=== PATIENT | male | born 1965 | race Caucasian/White ===

== ENCOUNTER 2022-04-28 16:34 | Emergency (ER) | payer OTHER ==
--- OUTSIDE RECORDS SUMMARY | 2022-04-28 16:40 | XMS REPORT | Continuity of Care Document ---
:1965 Author Organization [facility] t Address [address] [place] [address] Care Team Providers Name Role Phone Asked, No Pcp Primary Care Physician Unavailable Waldo Galindo Attending Clinician Unavailable Eh KENNEYD, [place] Brandon Attending Clinician [phone], [facility] Attending Clinician Unavailable CHARANJIT GALINDO Attending Clinician Unavailable Payers Payer Name Policy Type Policy Number Effective Date Expiration Date S jefferson [employer] 6 [id number] Common Spiri t 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 00 l [id number] Acute Problem Common stress Spirit reaction - [facility] [id number] Panic Problem Common disorder [facility] [episodic - CHI paroxysmal St anxiety] [facility] [id number] Body mass Problem Com mon index [facility] [BMI] - [facility] 33.0-33.9[facility] [id number] Other Problem Common obesity Spirit due to - [facility]I excess [facility] Seasonal Allergic Problem Commo n allergic rhinitis, Spiri t rhinitis seasonal - [facility] Mixed Depression Problem Commo n anxiety with Spirit and anxiety - CHI depressive [facility] Erectile Erectile Problem Commo n dysfunctio dysfunctio Sp cristiane n n - [facility] Gastroesop Gastroesop Problem C ommon hageal hageal Spirit reflux reflux - CHI disease disease [facility] Herpes Herpes Problem Common simplex simplex [facility] Osteoarthr Osteoarthr Problem C ommon itis of itis of Spirit multiple multiple - [facility] joints joints [facility] Chronic Chronic Problem Common pain due pain due Spirit to injury to injury - [facility] I [facility] Decreased Decreased Problem Com mon testostero testostero Sp cristiane ne level ne level - [facility] Hyperlipid Hyperlipid Problem C ommon emia emia [facility] Insomnia Insomnia Problem Commo n Spirit [facility] Tobacco Tobacco Problem Common use use Spirit disorder - [facility] [id number] Allergic Problem Commo n rhinitis, Spirit unspecifie - CHI d [facility] y, Medical unspecifie Center d trigger Allergies, Adverse Reactions, Alerts Allergy Allergy Status Severity Reaction(s) Onset Inactive Treating Comm ents Source Name Type Date Date Clinician NO KNOWN Drug Active Univers ALLERGIE Class [facility] Social History Social Habit Start Date Stop Date Quantity Comments Source History of Current Smoker Common Spi rit - Tobacco Use [facility] History SDOH [facility] Drinks History SDOH [facility] Alcohol Binge [facility] History SDOH [facility] Alcohol Frequency Hospita l Alcohol intake 2018-05-27 2018-05-27 Current drinker [facility] 00:00:00 00:00:00 of alcohol Hospital (finding) Alcohol Comment 2018-04-28 2018-04-28 weekend [facility] 00:00:00 00:00:00 Hospital Tobacco use and 2018-04-28 2018-04-28 Smokeless tobacco Me thodist exposure 00:00:00 00:00:00 non-user Hospital Sex Assigned At [birth year] [facility] 00:00:00 00:00:00 Hospital Smoking Status Start Date Stop Date Source Current Smoker 2022-03-24 00:00:00 Common Spiri t - [facility] Light tobacco smoker 2018-04-28 00:00:[address] [facility] Medications Ordered Filled Start Stop Current Ordering Indication Dosage Frequency Signature Comments Components Source Medication Medication Date Date Medication? Clinician (SIG) Name Name methylPREDN methylPREDN 2022- No QD methylPRED ISolone 4 ISolone 4 03-03 NISolone 4 MG MG 00:00: 00:00 MG 00 :00 methylPREDN methylPREDN 2022- No QD methylPRED ISolone 4 ISolone 4 03-03 NISolone 4 MG MG 00:00: 00:00 MG 00 :00 Bactrim DS Bactrim DS 2021-0 2021- No 1{table BID Bactrim DS 800-160 MG 800-160 MG 07-31 t} 800-160 MG 00:00: 00:00 00 :00 Bactrim DS Bactrim DS 2-0 2022- No 1{table BID Bactrim DS 800-160 MG 800-160 MG 07-31 t} 800-160 MG 00:00: 00:00 00 :00 Kenalog Kenalog 2021-0 No 40mg Common (Triamcinol (Triamcinol 6-07 S pirit one) one) 00:00: - [facility] Kenalog Kenalog 2021-0 No 40mg Common (Triamcinol (Triamcinol 6-07 S pirit one) one) 00:00: - [facility] Kenalog Kenalog 2021-0 No 40mg Common (Triamcinol (Triamcinol 6-07 S pirit one) one) 00:00: - [facility] Kenalog Kenalog 2021-0 No 40mg Common (Triamcinol (Triamcinol 6-07 S pirit one) one) 00:00: - [facility] Jose Bentleyalog 2021-0 No 40mg Common (Triamcinol (Triamcinol 6-07 S pirit one) one) 00:00: - [facility] Jose Bentleyalog 2021-0 No 40mg Common (Triamcinol (Triamcinol 6-07 S pirit one) one) 00:00: - [facility] Jose Bentleyalog 2021-0 No 40mg Common (Triamcinol (Triamcinol 6-07 S pirit one) one) 00:00: - [facility] Jose Garcia 2021-0 No 40mg Common (Triamcinol (Triamcinol 6-07 S pirit one) one) 00:00: - [facility] Jose Garcia 2021-0 No 40mg Common (Triamcinol (Triamcinol 6-07 S pirit one) one) 00:00: - [facility] Azithromyci Azithromyci 2021-0 2- No QD Azithromyc n 250 MG n 250 MG -05 05-19 in 250 MG 00:00: 00:00 00 :00 Azithromyci Azithromyci 2021-0 2- No QD Azithromyc n 250 MG n 250 MG -14 -19 in 250 MG 00:00: 00:00 00 :00 clonazePAM clonazePAM 2021-0 No QD clonazePAM 0.5 MG 0.5 MG 1-06 0.5 MG 00:00: 00 clonazePAM clonazePAM 2021-0 No QD clonazePAM 0.5 MG 0.5 MG 1-06 0.5 MG 00:00: 00 clonazePAM clonazePAM 2021-0 No QD clonazePAM 0.5 MG 0.5 MG 1-06 0.5 MG 00:00: 00 buPROPion buPROPion 2020-0 No 1{table QD buPROPion HCl ER (SR) HCl ER (SR) 03-15 t_in_th HCl ER 150 MG 150 MG 00:00: e_morni (SR) 150 00 ng} MG buPROPion buPROPion No 1{table QD buPROPion HCl ER (SR) HCl ER (SR) 1-22 t_in_th HCl ER 150 MG 150 MG 00:00: e_morni (SR) 150 00 ng} MG buPROPion buPROPion No 1{table QD buPROPion HCl ER (SR) HCl ER (SR) 1-22 t_in_th HCl ER 150 MG 150 MG 00:00: e_morni (SR) 150 00 ng} MG buPROPion buPROPion No 1{table QD buPROPion HCl ER (SR) HCl ER (SR) 1-22 t_in_th HCl ER 150 MG 150 MG 00:00: e_morni (SR) 150 00 ng} MG buPROPion buPROPion No 1{table QD buPROPion HCl ER (SR) HCl ER (SR) 1- t_in_th HCl ER 150 MG 150 MG 00:00: e_morni (SR) 150 00 ng} MG buPROPion buPROPion No 1{table QD buPROPion HCl ER (SR) HCl ER (SR) 1- t_in_th HCl ER 150 MG 150 MG 00:00: e_morni (SR) 150 00 ng} MG buPROPion buPROPion No 1{table QD buPROPion HCl ER (SR) HCl ER (SR) 1- t_in_th HCl ER 150 MG 150 MG 00:00: e_morni (SR) 150 00 ng} MG buPROPion buPROPion No 1{table QD buPROPion HCl ER (SR) HCl ER (SR) 1-22 t_in_th HCl ER 150 MG 150 MG 00:00: e_morni (SR) 150 00 ng} MG buPROPion buPROPion No 1{table QD buPROPion HCl ER (SR) HCl ER (SR) 1-22 t_in_th HCl ER 150 MG 150 MG 00:00: e_morni (SR) 150 00 ng} MG buPROPion buPROPion 0 No 1{table QD buPROPion HCl ER (SR) HCl ER (SR) 1-22 t_in_th HCl ER 150 MG 150 MG 00:00: e_morni (SR) 150 00 ng} MG buPROPion buPROPion No 1{table QD buPROPion HCl ER (SR) HCl ER (SR) 1-22 t_in_th HCl ER 150 MG 150 MG 00:00: e_morni (SR) 150 00 ng} MG buPROPion buPROPion No 1{table QD buPROPion HCl ER (SR) HCl ER (SR) 1-22 t_in_th HCl ER 150 MG 150 MG 00:00: e_morni (SR) 150 00 ng} MG buPROPion buPROPion No 1{table QD buPROPion HCl ER (SR) HCl ER (SR) 1- t_in_th HCl ER 150 MG 150 MG 00:00: e_morni (SR) 150 00 ng} MG buPROPion buPROPion No 1{table QD buPROPion HCl ER (SR) HCl ER (SR) 1- t_in_th HCl ER 150 MG 150 MG 00:00: e_morni (SR) 150 00 ng} MG buPROPion buPROPion No 1{table QD buPROPion HCl ER (SR) HCl ER (SR) 1- t_in_th HCl ER 150 MG 150 MG 00:00: e_morni (SR) 150 00 ng} MG TinderBox 2019-02 No 40mg Common (Triamcinol (Triamcinol 1-23 S pirit one) one) 00:00: - [facility] GroSocialalog Kenalog 2019-02 No 40mg Common (Triamcinol (Triamcinol 1-23 S pirit one) one) 00:00: - [facility] Kenalog Kenalog 2019-02 No 40mg Common (Triamcinol (Triamcinol 1-23 S pirit one) one) 00:00: - [facility] Kenalog Kenalog 2019-02 No 40mg Common (Triamcinol (Triamcinol 1-23 S pirit one) one) 00:00: - [facility] Kenalog Kenalog 2019-02 No 40mg Common (Triamcinol (Triamcinol 1-23 S pirit one) one) 00:00: - [facility] Kenalog Kenalog 2019- No 40mg Common (Triamcinol (Triamcinol 1-23 S pirit one) one) 00:00: - [facility] Kenalog Kenalog 2019- No 40mg Common (Triamcinol (Triamcinol 1-23 S pirit one) one) 00:00: - [facility] Kenalog Kenalog 2019- No 40mg Common (Triamcinol (Triamcinol 1-23 S pirit one) one) 00:00: - [facility] Kenalog Kenalog 2019- No 40mg Common (Triamcinol (Triamcinol 1-23 S pirit one) one) 00:00: - [facility] Kenalog Kenalog 2019- No 40mg Common (Triamcinol (Triamcinol 1-23 S pirit one) one) 00:00: - [facility] Kenalog Kenalog 2019- No 40mg Common (Triamcinol (Triamcinol 1-23 S pirit one) one) 00:00: - [facility] Kenalog Kenalog 2019- No 40mg Common (Triamcinol (Triamcinol 1-23 S pirit one) one) 00:00: - [facility] Kenalog Kenalog 2019- No 40mg Common (Triamcinol (Triamcinol 1-23 S pirit one) one) 00:00: - [facility] Livalo Livalo 2019-0 Yes Waldo 1 tablet Com mon 8-20 Galindo Spirit 00:00: - [facility] Kenalog Kenalog 2018- No 40mg Common (Triamcinol (Triamcinol 1-19 S pirit one) one) 00:00: - [facility] Kenalog Kenalog 2018- No 40mg Common (Triamcinol (Triamcinol 1-19 S pirit one) one) 00:00: - [facility] Kenalog Kenalog 2018- No 40mg Common (Triamcinol (Triamcinol 1-19 S pirit one) one) 00:00: - [facility] Jose Kenalog 2019-1 No 40mg Common (Triamcinol (Triamcinol 1-19 S pirit one) one) 00:00: - [facility] Jose Kenalog 2019-1 No 40mg Common (Triamcinol (Triamcinol 1-19 S pirit one) one) 00:00: - [facility] Jose Kenalog 2019-1 No 40mg Common (Triamcinol (Triamcinol 1-19 S pirit one) one) 00:00: - [facility] Kenmatthew Kenmatthew 2019-1 No 40mg Common (Triamcinol (Triamcinol 1-19 S pirit one) one) 00:00: - [facility] Jose Kenmatthew 2019-1 No 40mg Common (Triamcinol (Triamcinol 1-19 S pirit one) one) 00:00: - [facility] Kenmatthew Kenmatthew 2019-1 No 40mg Common (Triamcinol (Triamcinol 1-19 S pirit one) one) 00:00: - [facility] Kenmatthew Kenmatthew 2019-1 No 40mg Common (Triamcinol (Triamcinol 1-19 S pirit one) one) 00:00: - [facility] Jose Kenmatthew 2019-1 No 40mg Common (Triamcinol (Triamcinol 1-19 S pirit one) one) 00:00: - [facility] Kenmatthew Kenalog 2019-1 No 40mg Common (Triamcinol (Triamcinol 1-19 S pirit one) one) 00:00: - [facility] Kenmatthew Kenmatthew 2019-1 No 40mg Common (Triamcinol (Triamcinol 1-19 S pirit one) one) 00:00: - [facility] Kenmatthew Kenalog 2019-0 No 40mg Common (Triamcinol (Triamcinol 6-25 S pirit one) one) 00:00: - [facility] Kenalog Kenalog 2019-0 No 40mg Common (Triamcinol (Triamcinol 6-25 S pirit one) one) 00:00: - [facility] Kenalog Kenalog 2019-0 No 40mg Common (Triamcinol (Triamcinol 6-25 S pirit one) one) 00:00: - [facility] Kenalog Kenalog 2019-0 No 40mg Common (Triamcinol (Triamcinol 6-25 S pirit one) one) 00:00: - [facility] Kenalog Kenalog 2019-0 No 40mg Common (Triamcinol (Triamcinol 6-25 S pirit one) one) 00:00: - [facility] Kenmatthew Kenalog 2019-0 No 40mg Common (Triamcinol (Triamcinol 6-25 S pirit one) one) 00:00: - [facility] Kenmatthew Kenalog 2019-0 No 40mg Common (Triamcinol (Triamcinol 6-25 S pirit one) one) 00:00: - [facility] Kenmatthew Kenalog 2019-0 No 40mg Common (Triamcinol (Triamcinol 6-25 S pirit one) one) 00:00: - [facility] Kenmatthew Kenalog 2019-0 No 40mg Common (Triamcinol (Triamcinol 6-25 S pirit one) one) 00:00: - [facility] Kenalog Kenalog 2019-0 No 40mg Common (Triamcinol (Triamcinol 6-25 S pirit one) one) 00:00: - [facility] Kenalog Kenalog 2019-0 No 40mg Common (Triamcinol (Triamcinol 6-25 S pirit one) one) 00:00: - [facility] Kenalog Kenalog 2019-0 No 40mg Common (Triamcinol (Triamcinol 6-25 S pirit one) one) 00:00: - [facility] Kenalog Kenalog 2019-0 No 40mg Common (Triamcinol (Triamcinol 6-25 S pirit one) one) 00:00: - [facility] *Ketorolac *Ketorolac 2019-0 No 30mg C ommon 30mg/mL 30mg/mL 07-27 Spirit 00:00: - [facility] *Ketorolac *Ketorolac 2019-0 No 30mg C ommon 30mg/mL 30mg/mL 07-27 Spirit 00:00: - [facility] *Ketorolac *Ketorolac 2019-0 No 30mg C ommon 30mg/mL 30mg/mL 07-27 Spirit 00:00: - [facility] *Ketorolac *Ketorolac 2019-0 No 30mg C ommon 30mg/mL 30mg/mL 07-27 Spirit 00:00: - [facility] *Ketorolac *Ketorolac 2018-0 No 30mg C ommon 30mg/mL 30mg/mL 07-27 Spirit 00:00: - [facility] *Ketorolac *Ketorolac 2019-0 No 30mg C ommon 30mg/mL 30mg/mL 07-27 Spirit 00:00: - [facility] *Ketorolac *Ketorolac 2018-0 No 30mg C ommon 30mg/mL 30mg/mL 07-27 Spirit 00:00: - [facility] *Ketorolac *Ketorolac 2019-0 No 30mg C ommon 30mg/mL 30mg/mL 07-27 Spirit 00:00: - [facility] *Ketorolac *Ketorolac 2019-0 No 30mg C ommon 30mg/mL 30mg/mL 07-27 Spirit 00:00: - [facility] *Ketorolac *Ketorolac 2019-0 No 30mg C ommon 30mg/mL 30mg/mL 07-27 Spirit 00:00: - [facility] *Ketorolac *Ketorolac 2019-0 No 30mg C ommon 30mg/mL 30mg/mL 07-27 Spirit 00:00: - [facility] *Ketorolac *Ketorolac 2019-0 No 30mg C ommon 30mg/mL 30mg/mL 07-27 Spirit 00:00: - [facility] *Ketorolac *Ketorolac 2018-0 No 30mg C ommon 30mg/mL 30mg/mL 07-27 Spirit 00:00: - [facility] atorvastati 2018-0 Yes Method i n (LIPITOR) 4-16 st 10 MG 00:00: Hospita tablet 00 l atorvastati 2019-0 Yes Method i n (LIPITOR) 4-16 st 10 MG 00:00: Hospita tablet 00 l benzonatate 2018-0 Yes TK 1 TO 2 M ethodi (TESSALON) 4-[address] 100 MG 00:00: PRN Hospita capsule 00 l doxycycline 2019-0 Yes TK 1 C PO M ethodi (VIBRAMYCIN 4-[address] ) 100 MG 00:00: DAYS Hospita capsule 00 l amoxicillin 2018-0 Yes TK 1 T PO M ethodi -pot 4-[address] clavulanate 00:00: Hospit a (AUGMENTIN) 00 l 875-125 mg per tablet benzonatate 2018-0 Yes TK 1 TO 2 M ethodi (TESSALON) 4-[address] 100 MG 00:00: PRN Hospita capsule 00 l doxycycline 2019-0 Yes TK 1 C PO M ethodi (VIBRAMYCIN 4-[address] ) 100 MG 00:00: DAYS Hospita capsule 00 l amoxicillin 2018-0 Yes TK 1 T PO M ethodi -pot 4-[address] clavulanate 00:00: Hospit a (AUGMENTIN) 00 l 875-125 mg per tablet UNABLE TO 2019-0 Yes 2{tbl} Take 2 Meth [facility] FIND 4-[address] 08:51: mouth. Hospita 36 l RED YEAST 2019-0 Yes Take by Metho di RICE ORAL 4-[address] 08:51: Hospita 36 l UNABLE TO 2019-0 Yes 2{tbl} Take 2 Meth [facility] FIND 4-[address] 08:51: mouth. Hospita 36 l RED YEAST 2019-0 Yes Take by Metho di RICE ORAL 4-[address] 08:51: Hospita 36 l HYDROcodone 2019-0 Yes TK 1 T PO M ethodi -acetaminop 4-[address] hen (NORCO) 00:00: P Hospit a 7.5-325 mg 00 l per tablet HYDROcodone Yes TK 1 T PO M ethodi -acetaminop 4-[address] Q [address] hen (NORCO) 00:00: P Hospit a 7.5-325 mg 00 l per tablet escitalopra 2017-02 Yes TK 1 T PO M ethodi m (LEXAPRO) 2-[address] 20 MG 00:00: Hospita tablet 00 l escitalopra 2017-02 Yes TK 1 T PO M ethodi m (LEXAPRO) 2-[address] 20 MG 00:00: Hospita tablet 00 l Lexapro Lexapro Yes Waldo 1 tablet Com mon Galindo [facility] ProAir HFA ProAir HFA Yes Waldo 2 puffs as Common Galindo needed [facility] Tamsulosin Tamsulosin Yes Waldo 1 capsule Common HCl HCl Galindo [facility] Simvastatin Simvastatin Yes Waldo TAKE 1 Common Galindo TABLET BY [facility] MOUTH - [facility]I EVERY DAY [facility] IN [facility] Waldo 1 tablet Commo n Allergy Allergy Galindo [facility] BuPROPion BuPROPion Yes Waldo TAKE 1 C ommon HCl ER HCl ER Galindo TABLET BY Spiri t (Smoking (Smoking MOUTH - CHI Det) Det) EVERY DAY St IN [facility] Ajay Moss Yes Waldo 1 tablet Commo n Galindo as needed [facility] Escitalopra Escitalopra Yes Waldo 1/2 tablet Common m Oxalate m Oxalate Galindo Spir [facility] BuPROPion BuPROPion Yes Waldo 1 tablet Common HCl ER HCl ER Galindo in the [facility] (Smoking (Smoking morning - CH I Det) Det) [facility] Escitalopra Escitalopra Yes Waldo TAKE 1 Common m Oxalate m Oxalate Galindo TABLET BY [facility] MOUTH - [facility]I EVERY DAY [facility] Simvastatin Simvastatin No Simvastati 10 MG 10 MG n 10 MG ProAir HFA ProAir HFA No 2{puffs QID ProAir HFA 108 (90 108 (90 _as_nee 108 (90 Base) Base) ded} Base) MCG/ACT MCG/ACT MCG/ACT Escitalopra Escitalopra No Escitalopr m Oxalate m Oxalate am Oxalate 20 MG 20 MG 20 MG Cialis 5 MG Cialis 5 MG No 1{table QD Cialis 5 t_as_ne MG eded} Lexapro 20 Lexapro 20 No 1{table QD Lexapro 20 MG MG t} MG buPROPion buPROPion No buPROPion HCl ER HCl ER HCl ER (Smoking (Smoking (Smoking Det) 150 MG Det) 150 MG Det) 150 MG Ventolin Ventolin No Ventolin HFA 108 (90 HFA 108 (90 HFA 108 Base) Base) (90 Base) MCG/ACT MCG/ACT MCG/ACT Escitalopra Escitalopra No QD Escitalopr m Oxalate m Oxalate am Oxalate 20 20 20 Simvastatin Simvastatin No Simvastati 10 MG 10 MG n 10 MG Tamsulosin Tamsulosin No 1{capsu QD Tamsulosin HCl 0.4 HCl 0.4 le} HCl 0.4 ZyrTEC ZyrTEC No 1{table QD ZyrTEC Allergy 10 Allergy 10 t} Allergy 10 MG MG MG Tamsulosin Tamsulosin No 1{capsu QD Tamsulosin HCl 0.4 HCl 0.4 le} HCl 0.4 Simvastatin Simvastatin No QD Simvastati 10 MG 10 MG n 10 MG buPROPion buPROPion No 1{table QD buPROPion HCl ER HCl ER t_in_th HCl ER (Smoking (Smoking e_morni (Smoking Det) 150 MG Det) 150 MG ng} Det) 150 MG Simvastatin Simvastatin No Simvastati 10 MG 10 MG n 10 MG Lexapro 20 Lexapro 20 No 1{table QD Lexapro 20 MG MG t} MG ProAir HFA ProAir HFA No 2{puffs ProAir HFA 108 (90 108 (90 _as_nee 108 (90 Base) Base) ded} Base) MCG/ACT MCG/ACT MCG/ACT Cialis 5 MG Cialis 5 MG No 1{table QD Cialis 5 t_as_ne MG eded} buPROPion buPROPion No buPROPion HCl ER HCl ER HCl ER (Smoking (Smoking (Smoking Det) 150 MG Det) 150 MG Det) 150 MG Escitalopra Escitalopra No Escitalopr m Oxalate m Oxalate am Oxalate 20 MG 20 MG 20 MG ProAir HFA ProAir HFA No 2{puffs QID ProAir HFA 108 (90 108 (90 _as_nee 108 (90 Base) Base) ded} Base) MCG/ACT MCG/ACT MCG/ACT ZyrTEC ZyrTEC No 1{table QD ZyrTEC Allergy 10 Allergy 10 t} Allergy 10 MG MG MG Ventolin Ventolin No Ventolin HFA 108 (90 HFA 108 (90 HFA 108 Base) Base) (90 Base) MCG/ACT MCG/ACT MCG/ACT Escitalopra Escitalopra No QD Escitalopr m Oxalate m Oxalate am Oxalate 20 20 20 ProAir HFA ProAir HFA No 2{puffs ProAir HFA 108 (90 108 (90 _as_nee 108 (90 Base) Base) ded} Base) MCG/ACT MCG/ACT MCG/ACT Escitalopra Escitalopra No Escitalopr m Oxalate m Oxalate am Oxalate 20 MG 20 MG 20 MG buPROPion buPROPion No buPROPion HCl ER HCl ER HCl ER (Smoking (Smoking (Smoking Det) 150 MG Det) 150 MG Det) 150 MG Ventolin Ventolin No Ventolin HFA 108 (90 HFA 108 (90 HFA 108 Base) Base) (90 Base) MCG/ACT MCG/ACT MCG/ACT Simvastatin Simvastatin No QD Simvastati 10 MG 10 MG n 10 MG Simvastatin Simvastatin No Simvastati 10 MG 10 MG n 10 MG ProAir HFA ProAir HFA No 2{puffs QID ProAir HFA 108 (90 108 (90 _as_nee 108 (90 Base) Base) ded} Base) MCG/ACT MCG/ACT MCG/ACT Tamsulosin Tamsulosin No 1{capsu QD Tamsulosin HCl 0.4 HCl 0.4 le} HCl 0.4 Lexapro 20 Lexapro 20 No 1{table QD Lexapro 20 MG MG t} MG Cialis 5 MG Cialis 5 MG No 1{table QD Cialis 5 t_as_ne MG eded} Escitalopra Escitalopra No QD Escitalopr m Oxalate m Oxalate am Oxalate 20 20 20 ZyrTEC ZyrTEC No 1{table QD ZyrTEC Allergy 10 Allergy 10 t} Allergy 10 MG MG MG ProAir HFA ProAir HFA No 2{puffs ProAir HFA 108 (90 108 (90 _as_nee 108 (90 Base) Base) ded} Base) MCG/ACT MCG/ACT MCG/ACT Escitalopra Escitalopra No Escitalopr m Oxalate m Oxalate am Oxalate 20 MG 20 MG 20 MG buPROPion buPROPion No buPROPion HCl ER HCl ER HCl ER (Smoking (Smoking (Smoking Det) 150 MG Det) 150 MG Det) 150 MG Ventolin Ventolin No Ventolin HFA 108 (90 HFA 108 (90 HFA 108 Base) Base) (90 Base) MCG/ACT MCG/ACT MCG/ACT Simvastatin Simvastatin No QD Simvastati 10 MG 10 MG n 10 MG Simvastatin Simvastatin No Simvastati 10 MG 10 MG n 10 MG ProAir HFA ProAir HFA No 2{puffs QID ProAir HFA 108 (90 108 (90 _as_nee 108 (90 Base) Base) ded} Base) MCG/ACT MCG/ACT MCG/ACT Tamsulosin Tamsulosin No 1{capsu QD Tamsulosin HCl 0.4 HCl 0.4 le} HCl 0.4 Lexapro 20 Lexapro 20 No 1{table QD Lexapro 20 MG MG t} MG Cialis 5 MG Cialis 5 MG No 1{table QD Cialis 5 t_as_ne MG eded} Escitalopra Escitalopra No QD Escitalopr m Oxalate m Oxalate am Oxalate 20 20 20 ZyrTEC ZyrTEC No 1{table QD ZyrTEC Allergy 10 Allergy 10 t} Allergy 10 MG MG MG clonazePAM clonazePAM No QD clonazePAM 0.5 MG 0.5 MG 0.5 MG Tamsulosin Tamsulosin No 1{capsu QD Tamsulosin HCl 0.4 HCl 0.4 le} HCl 0.4 buPROPion buPROPion No buPROPion HCl ER HCl ER HCl ER (Smoking (Smoking (Smoking Det) 150 MG Det) 150 MG Det) 150 MG Simvastatin Simvastatin No Simvastati 10 MG 10 MG n 10 MG Escitalopra Escitalopra No Escitalopr m Oxalate m Oxalate am Oxalate 20 MG 20 MG 20 MG Ventolin Ventolin No Ventolin HFA 108 (90 HFA 108 (90 HFA 108 Base) Base) (90 Base) MCG/ACT MCG/ACT MCG/ACT Simvastatin Simvastatin No QD Simvastati 10 MG 10 MG n 10 MG Cialis 5 MG Cialis 5 MG No 1{table QD Cialis 5 t_as_ne MG eded} Escitalopra Escitalopra No QD Escitalopr m Oxalate m Oxalate am Oxalate 20 20 20 Lexapro 20 Lexapro 20 No 1{table QD Lexapro 20 MG MG t} MG ProAir HFA ProAir HFA No 2{puffs ProAir HFA 108 (90 108 (90 _as_nee 108 (90 Base) Base) ded} Base) MCG/ACT MCG/ACT MCG/ACT buPROPion buPROPion No 1{table QD buPROPion HCl ER HCl ER t_in_th HCl ER (Smoking (Smoking e_morni (Smoking Det) 150 MG Det) 150 MG ng} Det) 150 MG ProAir HFA ProAir HFA No 2{puffs QID ProAir HFA 108 (90 108 (90 _as_nee 108 (90 Base) Base) ded} Base) MCG/ACT MCG/ACT MCG/ACT ZyrTEC ZyrTEC No 1{table QD ZyrTEC Allergy 10 Allergy 10 t} Allergy 10 MG MG MG Escitalopra Escitalopra No QD Escitalopr m Oxalate m Oxalate am Oxalate 20 20 20 Simvastatin Simvastatin No Simvastati 10 MG 10 MG n 10 MG buPROPion buPROPion No 1{table QD buPROPion HCl ER HCl ER t_in_th HCl ER (Smoking (Smoking e_morni (Smoking Det) 150 MG Det) 150 MG ng} Det) 150 MG ZyrTEC ZyrTEC No 1{table QD ZyrTEC Allergy 10 Allergy 10 t} Allergy 10 MG MG MG Lexapro 20 Lexapro 20 No 1{table QD Lexapro 20 MG MG t} MG Escitalopra Escitalopra No Escitalopr m Oxalate m Oxalate am Oxalate 20 MG 20 MG 20 MG buPROPion buPROPion No buPROPion HCl ER HCl ER HCl ER (Smoking (Smoking (Smoking Det) 150 MG Det) 150 MG Det) 150 MG Cialis 5 MG Cialis 5 MG No 1{table QD Cialis 5 t_as_ne MG eded} Simvastatin Simvastatin No QD Simvastati 10 MG 10 MG n 10 MG Tamsulosin Tamsulosin No 1{capsu QD Tamsulosin HCl 0.4 HCl 0.4 le} HCl 0.4 ProAir HFA ProAir HFA No 2{puffs ProAir HFA 108 (90 108 (90 _as_nee 108 (90 Base) Base) ded} Base) MCG/ACT MCG/ACT MCG/ACT Ventolin Ventolin No Ventolin HFA 108 (90 HFA 108 (90 HFA 108 Base) Base) (90 Base) MCG/ACT MCG/ACT MCG/ACT ProAir HFA ProAir HFA No 2{puffs QID ProAir HFA 108 (90 108 (90 _as_nee 108 (90 Base) Base) ded} Base) MCG/ACT MCG/ACT MCG/ACT clonazePAM clonazePAM No QD clonazePAM 0.5 MG 0.5 MG 0.5 MG ProAir HFA ProAir HFA No 2{puffs QID ProAir HFA 108 (90 108 (90 _as_nee 108 (90 Base) Base) ded} Base) MCG/ACT MCG/ACT MCG/ACT buPROPion buPROPion No 1{table QD buPROPion HCl ER HCl ER t_in_th HCl ER (Smoking (Smoking e_morni (Smoking Det) 150 MG Det) 150 MG ng} Det) 150 MG Lexapro 20 Lexapro 20 No 1{table QD Lexapro 20 MG MG t} MG Escitalopra Escitalopra No Escitalopr m Oxalate m Oxalate am Oxalate 20 MG 20 MG 20 MG Cialis 5 MG Cialis 5 MG No 1{table QD Cialis 5 t_as_ne MG eded} clonazePAM clonazePAM No QD clonazePAM 0.5 MG 0.5 MG 0.5 MG Medrol 4 MG Medrol 4 MG No Medrol 4 MG ZyrTEC ZyrTEC No 1{table QD ZyrTEC Allergy 10 Allergy 10 t} Allergy 10 MG MG MG Escitalopra Escitalopra No QD Escitalopr m Oxalate m Oxalate am Oxalate 20 20 20 Ventolin Ventolin No Ventolin HFA 108 (90 HFA 108 (90 HFA 108 Base) Base) (90 Base) MCG/ACT MCG/ACT MCG/ACT Simvastatin Simvastatin No QD Simvastati 10 MG 10 MG n 10 MG Simvastatin Simvastatin No Simvastati 10 MG 10 MG n 10 MG ProAir HFA ProAir HFA No 2{puffs ProAir HFA 108 (90 108 (90 _as_nee 108 (90 Base) Base) ded} Base) MCG/ACT MCG/ACT MCG/ACT buPROPion buPROPion No buPROPion HCl ER HCl ER HCl ER (Smoking (Smoking (Smoking Det) 150 MG Det) 150 MG Det) 150 MG Tamsulosin Tamsulosin No 1{capsu QD Tamsulosin HCl 0.4 HCl 0.4 le} HCl 0.4 ProAir HFA ProAir HFA No 2{puffs QID ProAir HFA 108 (90 108 (90 _as_nee 108 (90 Base) Base) ded} Base) MCG/ACT MCG/ACT MCG/ACT buPROPion buPROPion No 1{table QD buPROPion HCl ER HCl ER t_in_th HCl ER (Smoking (Smoking e_morni (Smoking Det) 150 MG Det) 150 MG ng} Det) 150 MG Lexapro 20 Lexapro 20 No 1{table QD Lexapro 20 MG MG t} MG Escitalopra Escitalopra No Escitalopr m Oxalate m Oxalate am Oxalate 20 MG 20 MG 20 MG Cialis 5 MG Cialis 5 MG No 1{table QD Cialis 5 t_as_ne MG eded} clonazePAM clonazePAM No QD clonazePAM 0.5 MG 0.5 MG 0.5 MG Medrol 4 MG Medrol 4 MG No Medrol 4 MG ZyrTEC ZyrTEC No 1{table QD ZyrTEC Allergy 10 Allergy 10 t} Allergy 10 MG MG MG Escitalopra Escitalopra No QD Escitalopr m Oxalate m Oxalate am Oxalate 20 20 20 Ventolin Ventolin No Ventolin HFA 108 (90 HFA 108 (90 HFA 108 Base) Base) (90 Base) MCG/ACT MCG/ACT MCG/ACT Simvastatin Simvastatin No QD Simvastati 10 MG 10 MG n 10 MG Simvastatin Simvastatin No Simvastati 10 MG 10 MG n 10 MG ProAir HFA ProAir HFA No 2{puffs ProAir HFA 108 (90 108 (90 _as_nee 108 (90 Base) Base) ded} Base) MCG/ACT MCG/ACT MCG/ACT buPROPion buPROPion No buPROPion HCl ER HCl ER HCl ER (Smoking (Smoking (Smoking Det) 150 MG Det) 150 MG Det) 150 MG Tamsulosin Tamsulosin No 1{capsu QD Tamsulosin HCl 0.4 HCl 0.4 le} HCl 0.4 buPROPion buPROPion No 1{table QD buPROPion HCl ER HCl ER t_in_th HCl ER (Smoking (Smoking e_morni (Smoking Det) 150 MG Det) 150 MG ng} Det) 150 MG Tamsulosin Tamsulosin No 1{capsu QD Tamsulosin HCl 0.4 HCl 0.4 le} HCl 0.4 Simvastatin Simvastatin No Simvastati 10 MG 10 MG n 10 MG ProAir HFA ProAir HFA No 2{puffs QID ProAir HFA 108 (90 108 (90 _as_nee 108 (90 Base) Base) ded} Base) MCG/ACT MCG/ACT MCG/ACT clonazePAM clonazePAM No QD clonazePAM 0.5 MG 0.5 MG 0.5 MG Cialis 5 MG Cialis 5 MG No 1{table QD Cialis 5 t_as_ne MG eded} Medrol 4 MG Medrol 4 MG No Medrol 4 MG Escitalopra Escitalopra No QD Escitalopr m Oxalate m Oxalate am Oxalate 20 20 20 Lexapro 20 Lexapro 20 No 1{table QD Lexapro 20 MG MG t} MG Escitalopra Escitalopra No Escitalopr m Oxalate m Oxalate am Oxalate 20 MG 20 MG 20 MG buPROPion buPROPion No buPROPion HCl ER HCl ER HCl ER (Smoking (Smoking (Smoking Det) 150 MG Det) 150 MG Det) 150 MG ZyrTEC ZyrTEC No 1{table QD ZyrTEC Allergy 10 Allergy 10 t} Allergy 10 MG MG MG ProAir HFA ProAir HFA No 2{puffs ProAir HFA 108 (90 108 (90 _as_nee 108 (90 Base) Base) ded} Base) MCG/ACT MCG/ACT MCG/ACT Ventolin Ventolin No Ventolin HFA 108 (90 HFA 108 (90 HFA 108 Base) Base) (90 Base) MCG/ACT MCG/ACT MCG/ACT Simvastatin Simvastatin No QD Simvastati 10 MG 10 MG n 10 MG buPROPion buPROPion No 1{table QD buPROPion HCl ER HCl ER t_in_th HCl ER (Smoking (Smoking e_morni (Smoking Det) 150 MG Det) 150 MG ng} Det) 150 MG Tamsulosin Tamsulosin No 1{capsu QD Tamsulosin HCl 0.4 HCl 0.4 le} HCl 0.4 Simvastatin Simvastatin No Simvastati 10 MG 10 MG n 10 MG ProAir HFA ProAir HFA No 2{puffs QID ProAir HFA 108 (90 108 (90 _as_nee 108 (90 Base) Base) ded} Base) MCG/ACT MCG/ACT MCG/ACT clonazePAM clonazePAM No QD clonazePAM 0.5 MG 0.5 MG 0.5 MG Cialis 5 MG Cialis 5 MG No 1{table QD Cialis 5 t_as_ne MG eded} Medrol 4 MG Medrol 4 MG No Medrol 4 MG Escitalopra Escitalopra No QD Escitalopr m Oxalate m Oxalate am Oxalate 20 20 20 Lexapro 20 Lexapro 20 No 1{table QD Lexapro 20 MG MG t} MG Escitalopra Escitalopra No Escitalopr m Oxalate m Oxalate am Oxalate 20 MG 20 MG 20 MG buPROPion buPROPion No buPROPion HCl ER HCl ER HCl ER (Smoking (Smoking (Smoking Det) 150 MG Det) 150 MG Det) 150 MG ZyrTEC ZyrTEC No 1{table QD ZyrTEC Allergy 10 Allergy 10 t} Allergy 10 MG MG MG ProAir HFA ProAir HFA No 2{puffs ProAir HFA 108 (90 108 (90 _as_nee 108 (90 Base) Base) ded} Base) MCG/ACT MCG/ACT MCG/ACT Ventolin Ventolin No Ventolin HFA 108 (90 HFA 108 (90 HFA 108 Base) Base) (90 Base) MCG/ACT MCG/ACT MCG/ACT Simvastatin Simvastatin No QD Simvastati 10 MG 10 MG n 10 MG ZyrTEC ZyrTEC No 1{table QD ZyrTEC Allergy 10 Allergy 10 t} Allergy 10 MG MG MG Lexapro 20 Lexapro 20 No 1{table QD Lexapro 20 MG MG t} MG Escitalopra Escitalopra No QD Escitalopr m Oxalate m Oxalate am Oxalate 20 20 20 Cialis 5 MG Cialis 5 MG No 1{table QD Cialis 5 t_as_ne MG eded} ProAir HFA ProAir HFA No 2{puffs ProAir HFA 108 (90 108 (90 _as_nee 108 (90 Base) Base) ded} Base) MCG/ACT MCG/ACT MCG/ACT Ventolin Ventolin No Ventolin HFA 108 (90 HFA 108 (90 HFA 108 Base) Base) (90 Base) MCG/ACT MCG/ACT MCG/ACT buPROPion buPROPion No 1{table QD buPROPion HCl ER HCl ER t_in_th HCl ER (Smoking (Smoking e_morni (Smoking Det) 150 MG Det) 150 MG ng} Det) 150 MG Tamsulosin Tamsulosin No 1{capsu QD Tamsulosin HCl 0.4 HCl 0.4 le} HCl 0.4 ProAir HFA ProAir HFA No 2{puffs QID ProAir HFA 108 (90 108 (90 _as_nee 108 (90 Base) Base) ded} Base) MCG/ACT MCG/ACT MCG/ACT Medrol 4 MG Medrol 4 MG No Medrol 4 MG buPROPion buPROPion No buPROPion HCl ER HCl ER HCl ER (Smoking (Smoking (Smoking Det) 150 MG Det) 150 MG Det) 150 MG clonazePAM clonazePAM No QD clonazePAM 0.5 MG 0.5 MG 0.5 MG Escitalopra Escitalopra No Escitalopr m Oxalate m Oxalate am Oxalate 20 MG 20 MG 20 MG Simvastatin Simvastatin No QD Simvastati 10 MG 10 MG n 10 MG Simvastatin Simvastatin No Simvastati 10 MG 10 MG n 10 MG buPROPion buPROPion No buPROPion HCl ER HCl ER HCl ER (Smoking (Smoking (Smoking Det) 150 MG Det) 150 MG Det) 150 MG Tamsulosin Tamsulosin No 1{capsu QD Tamsulosin HCl 0.4 HCl 0.4 le} HCl 0.4 Lexapro 20 Lexapro 20 No 1{table QD Lexapro 20 MG MG t} MG Medrol 4 MG Medrol 4 MG No Medrol 4 MG Escitalopra Escitalopra No QD Escitalopr m Oxalate m Oxalate am Oxalate 20 20 20 Ventolin Ventolin No Ventolin HFA 108 (90 HFA 108 (90 HFA 108 Base) Base) (90 Base) MCG/ACT MCG/ACT MCG/ACT ProAir HFA ProAir HFA No 2{puffs QID ProAir HFA 108 (90 108 (90 _as_nee 108 (90 Base) Base) ded} Base) MCG/ACT MCG/ACT MCG/ACT Escitalopra Escitalopra No Escitalopr m Oxalate m Oxalate am Oxalate 20 MG 20 MG 20 MG ProAir HFA ProAir HFA No 2{puffs ProAir HFA 108 (90 108 (90 _as_nee 108 (90 Base) Base) ded} Base) MCG/ACT MCG/ACT MCG/ACT Simvastatin Simvastatin No Simvastati 10 MG 10 MG n 10 MG clonazePAM clonazePAM No QD clonazePAM 0.5 MG 0.5 MG 0.5 MG ZyrTEC ZyrTEC No 1{table QD ZyrTEC Allergy 10 Allergy 10 t} Allergy 10 MG MG MG Cialis 5 MG Cialis 5 MG No 1{table QD Cialis 5 t_as_ne MG eded} buPROPion buPROPion No buPROPion HCl ER HCl ER HCl ER (Smoking (Smoking (Smoking Det) 150 MG Det) 150 MG Det) 150 MG Tamsulosin Tamsulosin No 1{capsu QD Tamsulosin HCl 0.4 HCl 0.4 le} HCl 0.4 Lexapro 20 Lexapro 20 No 1{table QD Lexapro 20 MG MG t} MG Medrol 4 MG Medrol 4 MG No Medrol 4 MG Escitalopra Escitalopra No QD Escitalopr m Oxalate m Oxalate am Oxalate 20 20 20 Ventolin Ventolin No Ventolin HFA 108 (90 HFA 108 (90 HFA 108 Base) Base) (90 Base) MCG/ACT MCG/ACT MCG/ACT ProAir HFA ProAir HFA No 2{puffs QID ProAir HFA 108 (90 108 (90 _as_nee 108 (90 Base) Base) ded} Base) MCG/ACT MCG/ACT MCG/ACT Escitalopra Escitalopra No Escitalopr m Oxalate m Oxalate am Oxalate 20 MG 20 MG 20 MG ProAir HFA ProAir HFA No 2{puffs ProAir HFA 108 (90 108 (90 _as_nee 108 (90 Base) Base) ded} Base) MCG/ACT MCG/ACT MCG/ACT Simvastatin Simvastatin No Simvastati 10 MG 10 MG n 10 MG clonazePAM clonazePAM No QD clonazePAM 0.5 MG 0.5 MG 0.5 MG ZyrTEC ZyrTEC No 1{table QD ZyrTEC Allergy 10 Allergy 10 t} Allergy 10 MG MG MG Cialis 5 MG Cialis 5 MG No 1{table QD Cialis 5 t_as_ne MG eded} Escitalopra Escitalopra No Escitalopr m Oxalate m Oxalate am Oxalate 20 MG 20 MG 20 MG Tamsulosin Tamsulosin No 1{capsu QD Tamsulosin HCl 0.4 HCl 0.4 le} HCl 0.4 ZyrTEC ZyrTEC No 1{table QD ZyrTEC Allergy 10 Allergy 10 t} Allergy 10 MG MG MG Lexapro 20 Lexapro 20 No 1{table QD Lexapro 20 MG MG t} MG Escitalopra Escitalopra No QD Escitalopr m Oxalate m Oxalate am Oxalate 20 20 20 buPROPion buPROPion No 1{table QD buPROPion HCl ER HCl ER t_in_th HCl ER (Smoking (Smoking e_morni (Smoking Det) 150 MG Det) 150 MG ng} Det) 150 MG clonazePAM clonazePAM No QD clonazePAM 0.5 MG 0.5 MG 0.5 MG Medrol 4 MG Medrol 4 MG No Medrol 4 MG Cialis 5 MG Cialis 5 MG No 1{table QD Cialis 5 t_as_ne MG eded} buPROPion buPROPion No buPROPion HCl ER HCl ER HCl ER (Smoking (Smoking (Smoking Det) 150 MG Det) 150 MG Det) 150 MG Simvastatin Simvastatin No QD Simvastati 20 MG 20 MG n 20 MG ProAir HFA ProAir HFA No 2{puffs QID ProAir HFA 108 (90 108 (90 _as_nee 108 (90 Base) Base) ded} Base) MCG/ACT MCG/ACT MCG/ACT Ventolin Ventolin No Ventolin HFA 108 (90 HFA 108 (90 HFA 108 Base) Base) (90 Base) MCG/ACT MCG/ACT MCG/ACT ProAir HFA ProAir HFA No 2{puffs ProAir HFA 108 (90 108 (90 _as_nee 108 (90 Base) Base) ded} Base) MCG/ACT MCG/ACT MCG/ACT ZyrTEC ZyrTEC No 1{table QD ZyrTEC Allergy 10 Allergy 10 t} Allergy 10 MG MG MG Lexapro 20 Lexapro 20 No 1{table QD Lexapro 20 MG MG t} MG Escitalopra Escitalopra No QD Escitalopr m Oxalate m Oxalate am Oxalate 20 20 20 Cialis 5 MG Cialis 5 MG No 1{table QD Cialis 5 t_as_ne MG eded} ProAir HFA ProAir HFA No 2{puffs ProAir HFA 108 (90 108 (90 _as_nee 108 (90 Base) Base) ded} Base) MCG/ACT MCG/ACT MCG/ACT Ventolin Ventolin No Ventolin HFA 108 (90 HFA 108 (90 HFA 108 Base) Base) (90 Base) MCG/ACT MCG/ACT MCG/ACT buPROPion buPROPion No 1{table QD buPROPion HCl ER HCl ER t_in_th HCl ER (Smoking (Smoking e_morni (Smoking Det) 150 MG Det) 150 MG ng} Det) 150 MG Tamsulosin Tamsulosin No 1{capsu QD Tamsulosin HCl 0.4 HCl 0.4 le} HCl 0.4 ProAir HFA ProAir HFA No 2{puffs QID ProAir HFA 108 (90 108 (90 _as_nee 108 (90 Base) Base) ded} Base) MCG/ACT MCG/ACT MCG/ACT Medrol 4 MG Medrol 4 MG No Medrol 4 MG buPROPion buPROPion No buPROPion HCl ER HCl ER HCl ER (Smoking (Smoking (Smoking Det) 150 MG Det) 150 MG Det) 150 MG clonazePAM clonazePAM No QD clonazePAM 0.5 MG 0.5 MG 0.5 MG Escitalopra Escitalopra No Escitalopr m Oxalate m Oxalate am Oxalate 20 MG 20 MG 20 MG Simvastatin Simvastatin No QD Simvastati 10 MG 10 MG n 10 MG Immunizations Ordered Immunization Filled Immunization Date Status Commen ts Source Name Name Flucelvax - single Flucelvax - single 2021-11-19 Completed [facility] - dose syringe dose syringe 09:53:00 [facility] Flucelvax - single Flucelvax - single 2021-11-19 Completed [facility] - dose syringe dose syringe 09:53:00 [facility] Flucelvax - single Flucelvax - single 2021-11-19 Completed [facility] - dose syringe dose syringe 09:53:00 [facility] Flucelvax - single Flucelvax - single 2021-11-19 Completed [facility] - dose syringe dose syringe 09:53:00 [facility] Flucelvax - single Flucelvax - single 2021-11-19 Completed [facility] - dose syringe dose syringe 09:53:00 [facility] PFIZER COVID-19 MRNA 2020-06-21 Completed [facility] VACCINATION 00:00:00 [facility] PFIZER COVID-19 MRNA 2020-06-21 Completed [facility] VACCINATION 00:00:00 [facility] PFIZER COVID-19 MRNA 2020-05-31 Completed [facility]ist VACCINATION 00:00:00 [facility] PFIZER COVID-19 MRNA 2020-05-31 Completed [facility] VACCINATION 00:00:00 [facility] Afluria single dose Afluria single dose 2020-02-29 Completed [facility] - 09:43:00 [facility] Afluria single dose Afluria single dose 2020-02-29 Completed [facility] - 09:43:00 [facility] Afluria single dose Afluria single dose 2020-02-29 Completed [facility] - 09:43:00 [facility] Afluria single dose Afluria single dose 2020-02-29 Completed [facility] - 09:43:00 [facility] Afluria single dose Afluria single dose 2020-02-29 Completed [facility] - 09:43:00 [facility] Afluria single dose Afluria single dose 2020-02-29 Completed [facility] - 09:43:00 [facility] Afluria single dose Afluria single dose 2020-02-29 Completed [facility] - 09:43:00 [facility] Afluria single dose Afluria single dose 2020-02-29 Completed [facility] - 09:43:00 [facility] Afluria single dose Afluria single dose 2020-02-29 Completed [facility] - 09:43:00 [facility] Afluria single dose Afluria single dose 2020-02-29 Completed [facility] - 09:43:00 [facility] Afluria single dose Afluria single dose 2020-02-29 Completed [facility] - 09:43:00 [facility] Afluria single dose Afluria single dose 2020-02-29 Completed [facility] - 09:43:00 [facility] Afluria single dose Afluria single dose 2020-02-29 Completed [facility] - 09:43:00 [facility] Afluria single dose Afluria single dose 2020-02-29 Completed [facility] - 09:43:00 [facility] Afluria single dose Afluria single dose 2020-02-29 Completed [facility] - 09:43:00 [facility] Afluria single dose Afluria single dose 2020-01-15 Completed [facility] - 09:38:00 [facility] Afluria single dose Afluria single dose 2020-01-15 Completed [facility] - 09:38:00 [facility] Afluria single dose Afluria single dose 2020-01-15 Completed [facility] - 09:38:00 [facility] Afluria single dose Afluria single dose 2020-01-15 Completed [facility] - 09:38:00 [facility] Afluria single dose Afluria single dose 2020-01-15 Completed [facility] - 09:38:00 [facility] Afluria single dose Afluria single dose 2020-01-15 Completed [facility] - 09:38:00 [facility] Afluria single dose Afluria single dose 2020-01-15 Completed [facility] - 09:38:00 [facility] Afluria single dose Afluria single dose 2020-01-15 Completed [facility] - 09:38:00 [facility] Afluria single dose Afluria single dose 2020-01-15 Completed [facility] - 09:38:00 [facility] Afluria single dose Afluria single dose 2020-01-15 Completed [facility] - 09:38:00 [facility] Afluria single dose Afluria single dose 2020-01-15 Completed [facility] - 09:38:00 [facility] Afluria single dose Afluria single dose 2020-01-15 Completed [facility] - 09:38:00 [facility] Afluria single dose Afluria single dose 2020-01-15 Completed [facility] - 09:38:00 [facility] Afluria single dose Afluria single dose 2020-01-15 Completed [facility] - 09:38:00 [facility] Afluria single dose Afluria single dose 2020-01-15 Completed [facility] - 09:38:00 [facility] Fluzone Fluzone 2019-03-14 Completed [facility] - 09:06:00 [facility] Fluzone Fluzone 2019-03-14 Completed [facility] - 09:06:00 [facility] Fluzone Fluzone 2019-03-14 Completed [facility] - 09:06:00 [facility] Fluzone Fluzone 2019-03-14 Completed [facility] - 09:06:00 [facility] Fluzone Fluzone 2019-03-14 Completed [facility] - 09:06:00 [facility] Fluzone Fluzone 2019-03-14 Completed [facility] - 09:06:00 [facility] Fluzone Fluzone 2019-03-14 Completed [facility] - 09:06:00 [facility] Fluzone Fluzone 2019-03-14 Completed [facility] - 09:06:00 [facility] Fluzone Fluzone 2019-03-14 Completed [facility] - 09:06:00 [facility] Fluzone Fluzone 2019-03-14 Completed [facility] - 09:06:00 [facility] Fluzone Fluzone 2019-03-14 Completed [facility] - 09:06:00 [facility] Fluzone Fluzone 2019-03-14 Completed [facility] - 09:06:00 [facility] Fluzone Fluzone 2019-03-14 Completed [facility] - 09:06:00 [facility] Fluzone Fluzone 2019-03-14 Completed [facility] - 09:06:00 [facility] Fluzone Fluzone 2019-03-14 Completed [facility] - 09:06:00 [facility] Fluzone Fluzone 2019-03-14 Completed [facility] - 00:00:00 [facility] Afluria Afluria 2017-12-15 Completed [facility] - 14:22:00 [facility] Afluria Afluria 2017-12-15 Completed [facility] - 14:22:00 [facility] Afluria Afluria 2017-12-15 Completed [facility] - 14:22:00 [facility] Afluria Afluria 2017-12-15 Completed [facility] - 14:22:00 [facility] Afluria Afluria 2017-12-15 Completed [facility] - 14:22:00 [facility] Afluria Afluria 2017-12-15 Completed [facility] - 14:22:00 [facility] Afluria Afluria 2017-12-15 Completed [facility] - 14:22:00 [facility] Afluria Afluria 2017-12-15 Completed [facility] - 14:22:00 [facility] Afluria Afluria 2017-12-15 Completed [facility] - 14:22:00 [facility] Afluria Afluria 2017-12-15 Completed [facility] - 14:22:00 [facility] Afluria Afluria 2017-12-15 Completed [facility] - 14:22:00 [facility] Afluria Afluria 2017-12-15 Completed [facility] - 14:22:00 [facility] Afluria Afluria 2017-12-15 Completed [facility] - 14:22:00 [facility] Afluria Afluria 2017-12-15 Completed [facility] - 14:22:00 [facility] Afluria Afluria 2017-12-15 Completed [facility] - 14:22:00 [facility] PNEUMAVAX 23 PNEUMAVAX 2017-12-15 Completed [facility] - 14:21:00 [facility] PNEUMAVAX 23 PNEUMAVAX 23 2017-12-15 Completed [facility] - 14:21:00 [facility] PNEUMAVAX 23 PNEUMAVAX 2017-12-15 Completed [facility] - 14:21:00 [facility] PNEUMAVAX 23 PNEUMAVAX 23 2017-12-15 Completed [facility] - 14:21:00 [facility] PNEUMAVAX 23 PNEUMAVAX 2017-12-15 Completed [facility] - 14:21:00 [facility] PNEUMAVAX 23 PNEUMAVAX 23 2017-12-15 Completed [facility] - 14:21:00 [facility] PNEUMAVAX 23 PNEUMAVAX 2017-12-15 Completed [facility] - 14:21:00 [facility] PNEUMAVAX 23 PNEUMAVAX 2017-12-15 Completed [facility] - 14:21:00 [facility] PNEUMAVAX 23 PNEUMAVAX 2017-12-15 Completed [facility] - 14:21:00 [facility] PNEUMAVAX 23 PNEUMAVAX 23 2017-12-15 Completed [facility] - 14:21:00 [facility] PNEUMAVAX 23 PNEUMAVAX 2017-12-15 Completed [facility] - 14:21:00 [facility] PNEUMAVAX 23 PNEUMAVAX 23 2017-12-15 [facility]pleted [facility] - 14:21:00 [facility] PNEUMAVAX 23 PNEUMAVAX 23 2017-12-15 Completed [facility] - 14:21:00 [facility] PNEUMAVAX 23 PNEUMAVAX 23 2017-12-15 Completed [facility] - 14:21:00 [facility] PNEUMAVAX 23 PNEUMAVAX 2017-12-15 Completed [facility] - 14:21:00 [facility] Vital Signs Vital Name Observation Time Observation Value Comments Source height 2022-03-24 10:40:00 66 [in_i] [facility] weight 2022-03-24 10:40:00 210.6 [lb_av] [facility] temperature 2022-03-24 10:40:00 97.0 [degF] [facility] bmi 2022-03-24 10:40:00 33.99 kg/m2 [facility] oximetry 2022-03-24 10:40:00 96 % [facility] respiratory rate 2022-03-24 10:40:00 17 /min [facility] blood pressure 2022-03-24 10:40:00 109 mm[Hg] [facility] systolic [facility] blood pressure 2022-03-24 10:40:00 69 mm[Hg] [facility] - diastolic [facility] height 2022-03-03 10:10:00 66 [in_i] [facility] weight 2022-03-03 10:10:00 206.1 [lb_av] [facility] bmi 2022-03-03 10:10:00 33.26 kg/m2 [facility] height 2021-11-19 09:20:00 66 [in_i] [facility] weight 2021-11-19 09:20:00 206.1 [lb_av] [facility] temperature 2021-11-19 09:20:00 97.3 [degF] [facility] bmi 2021-11-19 09:20:00 33.26 kg/m2 [facility] oximetry 2021-11-19 09:20:00 95 % [facility] respiratory rate 2021-11-19 09:20:00 16 /min [facility] blood pressure 2021-11-19 09:20:00 137 mm[Hg] [facility] - systolic [facility] blood pressure 2021-11-19 09:20:00 68 mm[Hg] [facility] diastolic [facility] height 2021-07-29 14:00:00 66 [in_i] [facility] weight 2021-07-29 14:00:00 210.4 [lb_av] [facility] temperature 2021-07-29 14:00:00 98.2 [degF] [facility] bmi 2021-07-29 14:00:00 33.96 kg/m2 [facility] oximetry 2021-07-29 14:00:00 97 % [facility] respiratory rate 2021-07-29 14:00:00 18 /min [facility] blood pressure 2021-07-29 14:00:00 137 mm[Hg] [facility] - systolic [facility] blood pressure 2021-07-29 14:00:00 74 mm[Hg] [facility] - diastolic [facility] height 2021-07-24 09:10:00 66 [in_i] [facility] weight 2021-07-24 09:10:00 208.1 [lb_av] [facility] temperature 2021-07-24 09:10:00 98.6 [degF] [facility] bmi 2021-07-24 09:10:00 33.58 kg/m2 Common [facility] oximetry 2021-07-24 09:10:00 96 % [facility] respiratory rate 2021-07-24 09:10:00 17 /min Comm [facility] blood pressure 2021-07-24 09:10:00 134 mm[Hg] [facility] blood pressure 2021-07-24 09:10:00 77 mm[Hg] [facility] - diastolic [facility] height 2021-07-03 09:40:00 66 [in_i] [facility] weight 2021-07-03 09:40:00 209.7 [lb_av] [facility] temperature 2021-07-03 09:40:00 97.4 [degF] Common [facility] bmi 2021-07-03 09:40:00 33.84 kg/m2 Common S [facility] oximetry 2021-07-03 09:40:00 96 % Common [facility] respiratory rate 2021-07-03 09:40:00 17 /min Comm on [facility] blood pressure 2021-07-03 09:40:00 126 mm[Hg] [facility] - systolic [facility] blood pressure 2021-07-03 09:40:00 75 mm[Hg] [facility] height 2021-05-05 13:00:00 66 [in_i] [facility] weight 2021-05-05 13:00:00 204 [lb_av] [facility] temperature 2021-05-05 13:00:00 98 [degF] [facility] bmi 2021-05-05 13:00:00 32.92 kg/m2 [facility] height 2021-02-27 09:50:00 66 [in_i] [facility] weight 2021-02-27 09:50:00 206.2 [lb_av] [facility] temperature 2021-02-27 09:50:00 97.9 [degF] [facility] bmi 2021-02-27 09:50:00 33.28 kg/m2 [facility] oximetry 2021-02-27 09:50:00 97 % [facility] respiratory rate 2021-02-27 09:50:00 17 /min [facility] blood pressure 2021-02-27 09:50:00 128 mm[Hg] [facility] - systolic [facility] blood pressure 2021-02-27 09:50:00 77 mm[Hg] [facility] - diastolic [facility] height 2021-02-04 14:20:00 66 [in_i] [facility] weight 2021-02-04 14:20:00 207 [lb_av] [facility] bmi 2021-02-04 14:20:00 33.41 kg/m2 [facility] Procedures This patient has no known procedures. Plan of Care Planned Activity Planned Date Details Comments Source Future Scheduled 2022-04-20 COLONOSCOPY SCREENING [facility] Test 14:33:55 [code = COLONOSCOPY SCREENING] Future Scheduled 2022-04-20 SHINGLES VACCINES (1 [facility] Test 14:33:55 of 2) [code = SHINGLES VACCINES (1 of 2)] Future Scheduled 2022-04-20 COVID-19 VACCINE (3 - [facility] Test 14:33:55 Booster for Pfizer series) [code = COVID-19 VACCINE (3 - Booster for Pfizer series)] Future Scheduled 2022-04-20 INFLUENZA VACCINE [facility] Test 14:33:55 [code = INFLUENZA VACCINE] Future Scheduled 2021-02-12 Hepatitis C screening [facility] Test 02:49:18 (procedure) [code = [id number]] Future Scheduled 2021-02-12 COLONOSCOPY SCREENING [facility] Test 02:49:18 [code = COLONOSCOPY SCREENING] Future Scheduled 2021-02-12 SHINGLES VACCINES [facility] Test 02:49:18 (#1) [code = SHINGLES VACCINES (#1)] Future Scheduled 2021-02-12 INFLUENZA VACCINE [facility] Test 02:49:18 [code = INFLUENZA VACCINE] Future Scheduled 2021-02-12 COVID-19 VACCINE (3 - [facility] Test 02:49:18 Booster for Pfizer series) [code = COVID-19 VACCINE (3 - Booster for Pfizer series)] Encounters Start End Encounter Admission Attending Care Care Encounter Source Date/Time Date/Time Type Type Clinicians Facility Department ID 2022-03-20 Outpatient Galindo, [facility] [id number] Common 10:29:00 [facility] 2021-11-19 Outpatient Galindo, [facility] [id number] Common 09:45:00 [facility] 2021-10-21 Outpatient Galindo, [facility] [id number] Common 14:25:00 [facility] 2021-10-13 Outpatient Galindo, [facility] [id number] Common 12:41:00 [facility] 2021-09-05 Outpatient Galindo, [facility] [id number] Common 10:04:00 [facility] 2021-09-04 Outpatient Galindo, [facility] [id number] Common 14:19:00 [facility] 2021-08-29 Outpatient Galindo, [facility] [id number] Common 09:19:00 [facility] 2021-08-20 Outpatient Galindo, [facility] [id number] Common 09:35:00 [facility] 2021-08-13 Outpatient Galindo, [facility] [id number] Common 10:09:00 [facility] 2021-08-01 Outpatient Galindo, [facility] [id number] Common 10:09:00 [facility] 2021-07-03 Outpatient Galindo, [facility] [id number] Common 10:06:01 [facility] 2021-05-27 Outpatient Galindo, [facility] [id number] Common 15:00:01 [facility] 2021-05-22 Outpatient Galindo, [facility] [id number] Common 12:10:00 [facility] 2021-05-12 Outpatient Galindo, [facility] [id number] Common 12:27:01 [facility] 2021-03-19 Outpatient Galindo, [facility] [id number] Common 14:31:18 [facility] 2021-03-19 Outpatient Galindo, [facility] [id number] Common 14:01:53 [facility] [id number] [facility] 2021-03-19 Outpatient Galindo, [facility] [id number] Common 12:24:44 [facility] 2021-03-19 Outpatient Galindo, [facility] [id number] Common 11:37:00 [facility] 2021-03-19 Outpatient Galindo, [facility] [id number] Common 11:17:53 [place] [id number] [facility] 2021-03-19 Outpatient Galindo, [facility] [id number] Common 11:08:31 [place] [id number] [facility] 2021-03-19 Outpatient Galindo, [facility] [id number] Common 11:01:59 [place] [id number] [facility] 2022-04-07 2022-04-07 Outpatient SFA SFA [id number] Inocencio 09:51:44 09:51:44 [id number] Ric 2022-03-24 2022-03-24 OFFICE [facility]C [facility] [id number] Co mmon 00:00:00 00:00:00 VISIT [facility] PT - [facility] LEVEL 4 [facility] 2022-03-03 2022-03-03 (TEL) STLMLC ST[facility] [id number] Co mmon 00:00:00 00:00:00 [facility] 2022-03-03 2022-03-03 OFFICE STLMLC ST[facility] [id number] Co mmon 00:00:00 00:00:00 VISIT EST Spir it PT LEVEL 3 [facility] 2021-11-19 2021-11-19 OFFICE STLMLC ST[facility]C [id number] Co mmon 00:00:00 00:00:00 VISIT EST Spir it PT LEVEL 3 [facility] 2021-08-01 2021-08-01 (TEL) STLMLC ST[facility]C [id number] Co mmon 00:00:00 00:00:00 [facility] 2021-07-31 2021-07-31 (TEL) STL[facility]C ST[facility] [id number] Co mmon 00:00:00 00:00:00 [facility] 2021-07-29 2021-07-29 (TEL) STL[facility]C ST[facility] [id number] Co mmon 00:00:00 00:00:00 [facility] 2021-07-29 2021-07-29 OFFICE ST[facility]C ST[facility] [id number] Co mmon 00:00:00 00:00:00 VISIT EST Spir it PT LEVEL 3 - [facility] 2021-07-24 2021-07-24 OFFICE STLMLC ST[facility]C [id number] Co mmon 00:00:00 00:00:00 VISIT Spirit ESTAB PT - CHI LEVEL 4 [facility] 2021-07-03 2021-07-03 PREV VISIT STLMLC STLMLC [id number] Common 00:00:00 00:00:00 EST AGE Nishant 40-64 - [facility] 2021-05-05 2021-05-05 (TEL) STLMLC ST[facility] [id number] Co mmon 00:00:00 00:00:00 [facility] 2021-05-05 2021-05-05 OFFICE STLMLC ST[facility]C [id number] Co mmon 00:00:00 00:00:00 VISIT EST Spir it PT LEVEL 3 - [facility] 2021-02-27 2021-02-27 OFFICE STLMLC ST[facility]C [id number] Co mmon 00:00:00 00:00:00 VISIT [facility] ESTAB PT - CHI LEVEL 4 [facility] 2021-02-04 2021-02-04 OFFICE STLMLC ST[facility]C [id number] Co mmon 00:00:00 00:00:00 VISIT EST Spir it PT LEVEL 3 [facility] 2020-10-31 2020-10-31 Outpatient STL[facility]C [facility] [id number] Common 00:00:00 00:00:00 [facility] 2020-10-09 2020-10-09 Outpatient [facility]C [facility] [id number] Common 00:00:00 00:00:00 [facility] 2020-10-08 2020-10-08 Outpatient [facility] [id number] Common 00:00:00 00:00:00 [facility] 2020-07-04 2020-07-04 Outpatient STL[facility]C ST[facility] [id number] Common 00:00:00 00:00:00 [facility] 2020-06-21 2020-06-21 Leigha Stauffer [id number] Methodi 08:32:45 08:37:45 [facility] [id number] P[address] [id number] Hospit a .3.230265 l .8 2020-06-06 2020-06-06 Outpatient ST[facility]MLC [facility] [id number] Common 00:00:00 00:00:00 [facility] 2020-05-31 2020-05-31 Clinical [id number] Methodi 08:15:06 08:20:[id number] [id number] Hospit a .3.557570 l .8 2020-03-22 2020-03-22 Outpatient R [facility] [id number] Univers 14:45:00 14:45:00 [id number] [facility] 2020-03-21 2020-03-21 Outpatient [facility]MLC [facility] [id number] Common 00:00:00 00:00:00 [facility] 2020-03-21 2020-03-21 Outpatient STL[facility]C ST[facility] [id number] Common 00:00:00 00:00:00 [facility] 2020-03-19 2020-03-19 Outpatient R [facility] [id number] Univers 08:40:00 08:40:00 [id number] [facility] 2020-03-19 2020-03-19 Outpatient R [facility] [id number] Univers 08:40:00 08:40:00 [facility] 2020-03-18 2020-03-18 Outpatient ST[facility]C [facility] [id number] Common 00:00:00 00:00:00 [facility] 2020-03-18 2020-03-18 Outpatient [facility]C [facility] [id number] Common 00:00:00 00:00:00 [facility] 2020-03-14 2020-03-14 Outpatient [facility]C [facility] [id number] Common 00:00:00 00:00:00 [facility] 2020-02-29 2020-02-29 Outpatient [facility]C [facility] [id number] Common 00:00:00 00:00:00 [facility] 2020-01-15 2020-01-15 Outpatient [facility]C [facility] [id number] Common 00:00:00 00:00:00 [facility] 2020-01-15 2020-01-15 Outpatient [facility]C [facility] [id number] Common 00:00:00 00:00:00 [facility] 2019-10-12 2019-10-12 [id number] Common 10:00:00 10:00:[address] [facility] 2019-08-25 2019-08-25 Buying Intern 1, Adc Lab [facility] [id number] 15:47:14 16:02:14 Visit [place] [id number] [place] [id number] [place] [id number] 2019-08-25 2019-08-25 Outpatient Salomon GALINDO, [facility] [id number] Univers 15:45:00 15:45:00 CHARANJIT [facility] 2019-07-25 2019-07-25 [facility] [id number] Common 08:13:00 08:13:[address] [facility] 2019-07-13 2019-07-13 Out[facility] [id number] Common 11:00:00 11:00:[address] [facility] 2019-04-13 2019-04-13 [facility] [id number] Common 11:36:00 11:36:[address] [facility] 2019-04-13 2019-04-13 [facility] [id number] Common 11:00:00 11:00:[address] [facility] 2019-03-14 2019-03-14 Out[facility] [id number] Common 08:30:00 08:30:[address] [facility] 2019-01-10 2019-01-10 Out[facility] [id number] Common 08:00:00 08:00:[address] [facility] 2019-01-03 2019-01-03 Out[facility] [id number] Common 08:45:00 08:45:[address] [facility] 2018-12-28 2018-12-28 [facility] [id number] Common 08:15:00 08:15:[address] [facility] 2018-11-03 2018-11-03 Out[facility] [id number] Common 10:30:00 10:30:[address] [facility] 2018-08-16 2018-08-16 [facility] [id number] Common 09:30:00 09:30:[address] [facility] 2017-09-16 2017-09-16 [facility] [id number] Common 08:15:00 08:15:[address] [facility] Results Test Description Test Time Test Comments Results Result Comments Source STREP A RAPID 2022-03-03 Result 00:00:00 Kenneth 2021-07-22 result 00:00:00 POC, COVID 19 POC, COVID 19 Antigen + Flu by Antigen + Flu Lauren by Lauren SARS-COV 2 Antigen SARS-COV 2 Antigen
[2022-04-28] MEDS ORDERED: TDAP (DIPHTH,PERTUSS(ACELL),TET VAC) 0.5 ML VIAL IMVAC ONE (16:50)
[2022-04-28] MEDS ORDERED: HYDROCODONE/APAP 10/325 TAB ONE (16:50)
--- NOTE | 2022-04-28 17:27 | RAD REPORT ---
EXAM DESCRIPTION: RAD - Hand Left 3 View - 04/28/2022 5:10 pm CLINICAL HISTORY: PAIN COMPARISON: No comparisons FINDINGS: Moderate soft tissue swelling is seen adjacent to the fifth metacarpal. No acute fracture or dislocation. Tiny metallic foreign body is seen the soft tissues of third finger.
[2022-04-28] MEDS ORDERED: KETOROLAC 30 MG/ML INJ ONE (18:53)
[2022-04-28 20:25] VITALS: TEMP 97.5; O2SAT 100
[2022-04-28 20:26] VITALS: BP 142/86
--- NOTE | 2022-05-15 14:21 | EDPHYS ---
Physician Documentation [facility] Name: Lauri Travis Age: 56 yrs Sex: Male : 1965 Arrival Date: 04/28/2022 Time: 16:36 Bed DIS5 Private MD: [facility] ED Physician Zack Baker HPI: 04/28 16:57 This 56 yrs old Male presents to ER via Ambulatory with complaints of Crush Injury To kb Hand. 16:57 The patient or guardian reports an abrasion, injury, pain, swelling, tenderness. The kb complaints affect the left hand. Context: The problem was sustained outdoors, resulted from a direct blow. Onset: The symptoms/episode began/occurred just prior to arrival. Modifying factors: The symptoms are alleviated by nothing, the symptoms are aggravated by movement. Associated signs and symptoms: The patient has no apparent associated signs or symptoms. Severity of symptoms: At their worst the symptoms were moderate, in the emergency department the symptoms are unchanged. The patient has not experienced similar symptoms in the past. The patient has not recently seen a physician. Historical: - Allergies: 16:41 No Known Allergies; iw - PMHx: 16:41 Hypercholesterolemia; iw - PSHx: 16:41 None; iw - Immunization history:: Adult Immunizations up to date, Client reports receiving the 2nd dose of the Covid vaccine. - Social history:: Smoking status: Patient denies any tobacco usage or history of. Patient/guardian denies using alcohol. ROS: 16:56 Constitutional: Negative for fever, chills, and weight loss. kb 16:56 MS/extremity: Positive for injury or acute deformity, abrasion, pain, swelling, tenderness, of the left hand. 16:56 All other systems are negative. Exam: 16:56 Constitutional: This is a well developed, well nourished patient who is awake, alert, kb and in no acute distress. Head/Face: Normocephalic, atraumatic. ENT: Moist Mucous membranes Cardiovascular: Regular rate and rhythm with a normal S1 and S2. No gallops, murmurs, or rubs. No pulse deficits. Respiratory: Respirations even and unlabored. No increased work of breathing. Talking in full sentences Skin: Warm, dry with normal turgor. Normal color. Neuro: Awake and alert, GCS 15, oriented to person, place, time, and situation. Moves all extremities. Normal gait. Psych: Awake, alert, with orientation to person, place and time. Behavior, mood, and affect are within normal limits. 16:56 Musculoskeletal/extremity: Extremities: grossly normal except: noted in the left hand: abrasion, pain, swelling, tenderness, ROM: limited active range of motion due to pain, in the left hand, Circulation is intact in all extremities. Sensation intact. Vital Signs: 16:40 Resp 18; Weight 96.16 kg; Height 5 ft. 6 in. ; Pain 8/10; iw 16:42 BP 159 / 97; Pulse 97; Resp 18; Temp 97.5; Pulse Ox 100% on R/A; iw 18:56 BP 142 / 86; Pulse 88; Resp 18; Pulse Ox 100% ; mb9 16:40 Body Mass Index 34.22 (96.16 kg, 167.64 cm) iw 16:40 Pain Scale: Adult iw MDM: 16:38 Patient medically screened. kb 16:55 Differential diagnosis: dislocation, closed fracture, contusion. Data reviewed: vital kb signs, nurses notes. ED course: Patient is a 56-year-old male who presents with left hand pain and swelling after a level fell onto it from a height. On exam patient has moderate swelling to dorsum of left hand with abrasions. X-ray ordered to rule out fracture.. 17:32 Independent interpretation of the following test(s) in the Emergency Department X-Ray: kb My interpretation is x-ray reviewed by me, no fracture. Counseling: I had a detailed discussion with the patient and/or guardian regarding: the historical points, exam findings, and any diagnostic results supporting the discharge/admit diagnosis, radiology results, the need for outpatient follow up, a family practitioner, to return to the emergency department if symptoms worsen or persist or if there are any questions or concerns that arise at home. 04/28 16:44 Order name: Hand Left 3 View XRAY kb 04/28 17:28 Order name: RAD; Complete Time: 17:31 EDMS 04/28 16:44 Order name: Ice pack; Complete Time: 16:44 kb 04/28 18:05 Order name: Segun Wrap; Complete Time: 18:47 kb Administered Medications: 16:49 Drug: Burt PO 10 mg-325 mg 1 tabs Route: PO; iw 16:49 Drug: Boostrix Tdap 0.5 ml Route: IM; Site: right deltoid; iw 18:55 Drug: Ketorolac IM 30 mg Route: IM; Site: right deltoid; mb9 18:55 Follow up: Response: No adverse reaction mb9 Disposition: 17:46 Co-signature as Attending Physician, Zack Baker DO I was immediately available on-site ms3 in the Emergency Department for consultation in the care of the patient. Disposition Summary: 04/28/22 17:33 Discharge Ordered Location: Home kb Condition: Stable kb Diagnosis - Contusion of left hand kb Followup: kb - With: Emergency Department - When: As needed - Reason: Worsening of condition Followup: kb - With: Private Physician - When: 2 - 3 days - Reason: Recheck today's complaints, Continuance of care, Re-evaluation by your physician Discharge Instructions: - Discharge Summary Sheet kb - Hand Contusion kb Forms: - Medication Reconciliation Form kb - Thank You Letter kb - Antibiotic Education kb - Prescription Opioid Use kb Prescriptions: - Diclofenac Sodium 75 mg Oral tablet,delayed release (DR/EC) - take 1 tablet by ORAL route 2 times per day As needed; 30 tablet; Refills: 0, kb Product Selection Permitted Signatures: Dispatcher [employer] Kajal Sauer, CINTIA PRICE-Chantal Warenr, RN JERED iw Zack Baker, DO ms3 Earlene Carter RN RN mb9
--- NOTE | 2022-05-15 14:21 | ER ---
Nurse's Notes [facility] Name: Lauri Travis Age: 56 yrs Sex: Male : 1965 Arrival Date: 04/28/2022 Time: 16:36 Bed DIS5 Private MD: Waldo Galindo Diagnosis: Contusion of left hand Presentation: 04/28 16:40 Chief complaint: Patient states: Level flew off of gate and hit left hand today at iw work. Coronavirus screen: At this time, the client does not indicate any symptoms associated with coronavirus-19. Ebola Screen: No symptoms or risks identified at this time. Initial Sepsis Screen: Does the patient meet any 2 criteria? No. Patient's initial sepsis screen is negative. Does the patient have a suspected source of infection? No. Patient's initial sepsis screen is negative. Risk Assessment: Do you want to hurt yourself or someone else? Patient reports no desire to harm self or others. Onset of symptoms was April 28, 2022. 16:40 Method Of Arrival: Ambulatory iw 16:40 Acuity: JUDITH 4 iw Triage Assessment: 16:41 General: Appears in no apparent distress. comfortable, Behavior is calm, cooperative, iw appropriate for age. Pain: Complains of pain in left hand Pain does not radiate. Pain currently is 8 out of 10 on a pain scale. EENT: No signs and/or symptoms were reported regarding the EENT system. Neuro: Level of Consciousness is awake, alert, obeys commands, Oriented to person, place, time, situation. Cardiovascular: Capillary refill < 3 seconds Patient's skin is warm and dry. Respiratory: Airway is patent Respiratory effort is even, unlabored. GI: Abdomen is flat, non-distended. : No signs and/or symptoms were reported regarding the genitourinary system. Derm: No signs and/or symptoms reported regarding the dermatologic system. Musculoskeletal: No signs and/or symptoms reported regarding the musculoskeletal system. Historical: - Allergies: 16:41 No Known Allergies; iw - PMHx: 16:41 Hypercholesterolemia; iw - PSHx: 16:41 None; iw - Immunization history:: Adult Immunizations up to date, Client reports receiving the 2nd dose of the Covid vaccine. - Social history:: Smoking status: Patient denies any tobacco usage or history of. Patient/guardian denies using alcohol. Screenin:56 [facility] ED Fall Risk Assessment (Adult) History of falling in the last 3 months, mb9 including since admission No falls in past 3 months (0 pts) Confusion or Disorientation No (0 pts) Intoxicated or Sedated No (0 pts) Impaired Gait No (0 pts) Mobility Assist Device Used No (0 pt) Altered Elimination No (0 pt) Score/Fall Risk Level 0 - 2 = Low Risk Oriented to surroundings, Maintained a safe environment, Educated pt \T\ family on fall prevention, incl call for assistance when getting out of bed. Abuse screen: Denies threats or abuse. Nutritional screening: No deficits noted. Tuberculosis screening: No symptoms or risk factors identified. Assessment: 18:55 Reassessment: Patient and/or family updated on plan of care and expected duration. Pain mb9 level reassessed. Patient is alert, oriented x 3, equal unlabored respirations, skin warm/dry/pink. Patient states feeling better. Patient states symptoms have improved. Pain: Complains of pain in left hand Pain does not radiate. Pain currently is 7 out of 10 on a pain scale. Quality of pain is described as throbbing, Pain began suddenly. Cardiovascular: Patient's skin is warm and dry. Respiratory: Airway is patent Respiratory effort is even, unlabored, Respiratory pattern is regular, symmetrical. Derm: Bruising that is dark purple, on left hand. Musculoskeletal: Range of motion: intact in all extremities. Vital Signs: 16:40 Resp 18; Weight 96.16 kg; Height 5 ft. 6 in. ; Pain 8/10; iw 16:42 BP 159 / 97; Pulse 97; Resp 18; Temp 97.5; Pulse Ox 100% on R/A; iw 18:56 BP 142 / 86; Pulse 88; Resp 18; Pulse Ox 100% ; mb9 16:40 Body Mass Index 34.22 (96.16 kg, 167.64 cm) iw 16:40 Pain Scale: Adult iw ED Course: 16:36 Patient arrived in ED. mr 16:36 Waldo Galindo DO is Private Physician. mr 16:37 [facility]aj[facility] kb 16:37 Zack Baker DO is Attending Physician. kb 16:41 Triage completed. iw 16:41 Arm band placed on right wrist. iw 18:56 No provider procedures requiring assistance completed. Patient did not have IV access mb9 during this emergency room visit. Administered Medications: 16:49 Drug: [place] PO 10 mg-325 mg 1 tabs Route: PO; iw 16:49 Drug: Boostrix Tdap 0.5 ml Route: IM; Site: right deltoid; iw 18:55 Drug: Ketorolac IM 30 mg Route: IM; Site: right deltoid; mb9 18:55 Follow up: Response: No adverse reaction mb9 Medication: 16:49 Vaccine Information Statement (VIS) provided today. Questions and/or concerns iw addressed. VIS edition date: April 28, 2022. Outcome: 17:33 Discharge ordered by . kb 18:56 Discharged to home ambulatory. mb9 18:56 Condition: stable 18:56 Discharge instructions given to patient, Instructed on discharge instructions, follow up and referral plans. Demonstrated understanding of instructions, follow-up care, medications, Prescriptions given X 1. 18:56 Patient left the ED. mb9 Signatures: Kajal So, CINTIA PRICE-Earlene Coyle Irene, RN RN iw Earlene Carter, RN RN mb9
== END 2022-04-28 18:56 | disposition home or self-care (01) ==
LOC: ER 16:34
DX: S60.222A Contusion of left hand, initial encounter (principal)
CPT/HCPCS: 96372; 99283